=== PATIENT | male | born 1950 | race Two or more races ===

== ENCOUNTER 2017-06-26 08:07 | Emergency (ER) | payer OTHER ==
[~2017-06-26] VITALS: Ht 170.2 cm; Wt 72.6 kg
[2017-06-26] MEDS ORDERED: MIDAZOLAM DRIP 50 mg/50mL 50 ML IV SCH (08:10)
[2017-06-26] MEDS ORDERED: MIDAZOLAM DRIP 50 mg/50mL 50 ML IV ONE (08:11)
[2017-06-26] MEDS ORDERED: SUCCINYLCHOLINE CHLORIDE 20 MG/ML 10ML VIAL IV ONE (08:12)
[2017-06-26] MEDS ORDERED: ETOMIDATE (2MG/ML) 20ML VIAL IV ONE ×2 (08:15)
[2017-06-26 08:26] VITALS: BP 151/88
== END 2017-06-26 08:44 | disposition short-term general hospital (02) ==
LOC: ER 08:07 → EDBD 08:07 → EDUNIT# 08:07 → ER 08:36
DX: S09.93XA Unspecified injury of face, initial encounter (principal); R06.03 Acute respiratory distress; W01.0XXA Fall on same level from slipping, tripping and stumbling without subsequent striking against object, initial encounter; Y93.89 Activity, other specified; Y99.8 Other external cause status; Y92.89 Other specified places as the place of occurrence of the external cause
CPT/HCPCS: 31500; 99291; J2250; J0330

== ENCOUNTER 2017-12-31 09:02 | Inpatient (IN) | payer OTHER ==
[~2017-12-31] VITALS: Ht 170.2 cm; Wt 55.7 kg
[2017-12-31 12:15] LABS: Basophils # (auto) 0 uL; Basophils % (auto) 0.3 % (0.0-2.0); Eosinophils # (auto) 0 uL; Eosinophils % (auto) 0.4 % (0.0-7.0); Hematocrit 36.8 % (41.0-53.0); Lymphocytes # (auto) 2.3 uL; Mean Corpuscular Hemoglobin 32.1 pg (28.0-32.0); Mean Corpuscular Hgb Conc. 32.6 g/dL (32.0-36.0); Mean Corpuscular Volume 98.2 fL (80.0-100.0); Monocytes # (auto) 0.9 uL; Monocytes % (auto) 8.3 % (0.0-12.0); Neutrophils # (auto) 7.3 uL; Platelet Count (auto) 367 10^3/uL (140-450); Red Blood Cells 3.75 10^6/uL (4.5-5.90); Red Cell Distribution Width 15.6 % (11.8-14.3); White Blood Cell 10.6 10^3/uL (4.4-10.8)
[2017-12-31 12:34] LABS: INR 0.96 (0.9-1.15); Partial Thromboplastin Time 23.5 sec (23.78-33.04); Prothrombin Time 10.3 sec (9.27-12.13)
[2017-12-31 14:04] LABS: Anion Gap 9 (5-15); Blood Urea Nitrogen 25 mg/dL (7-18); Carbon Dioxide 26 mmol/L (21-32); Chloride 101 mmol/L (98-107); GFR African American 95 mL/min; GFR Non-African American 79 mL/min; Glucose 98 mg/dL (74-106); Potassium 4.3 mmol/L (3.5-5.1); Sodium 136 mmol/L (136-145)
[2017-12-31 14:05] LABS: Alanine Aminotransferase 27 U/L (16-61); Albumin 2.8 g/dL (3.4-5.0); Alkaline Phosphatase 138 U/L (45-117); Aspartate Aminotransferase 21 U/L (15-37); Bilirubin, Total 0.7 mg/dL (0.2-1.0); Blood Alcohol < 3.0 mg/dL (0-5); Calcium 9.9 mg/dL (8.5-10.1); Total Protein 8.9 g/dL (6.4-8.2)
[2017-12-31] MEDS ORDERED: MORPHINE SULF INJ 2 MG/ML SYRINGE 1ML IV PRN ×2 (14:45)
[2017-12-31] MEDS ORDERED: ASPirin-EC 81 mg tab PO ONE (14:45)
[2017-12-31] MEDS ORDERED: ONDANSETRON HCL 4 MG/2 ML VIAL IV PRN (14:45)
[2017-12-31] MEDS ORDERED: cefTRIAXone 1GM/10ml IVPUSH 10 ML IV ONE (14:45)
[2017-12-31] MEDS ORDERED: HYDROcodone-ACET 5/325MG TAB PO PRN (14:45)
[2017-12-31] MEDS ORDERED: DOCUSATE SOD 100 MG CAP PO PRN (14:45)
[2017-12-31] MEDS ORDERED: ACETAMINOPHEN 325 MG TAB PO PRN (14:45)
[2017-12-31] MEDS ORDERED: NITROGLYCERIN 0.4 MG SL TAB SL PRN (14:45)
[2017-12-31] MEDS: ENOXAPARIN SOD 40 MG/0.4 ML SYRINGE SC SCH (15:36)
[2017-12-31] MEDS: SODIUM CHLORIDE 0.9% 1,000 ML IV SCH (15:37)
[2017-12-31] MEDS: Ensure Enlive Strawberry 8oz Bottle PO SCH (19:30)
[2017-12-31 20:00] VITALS: BP 130/85
[2017-12-31 21:25] VITALS: BP 130/85
[2017-12-31] MEDS ORDERED: ATORVASTATIN 20 MG TAB PO SCH (22:00)
[2017-12-31] MEDS: FAMOTIDINE 20 MG TAB PO SCH (22:15)
[2018-01-01 05:33] VITALS: BP 128/84
[2018-01-01 07:39] LABS: Basophils # (auto) 0 uL; Basophils % (auto) 0.6 % (0.0-2.0); Eosinophils # (auto) 0 uL; Eosinophils % (auto) 0.6 % (0.0-7.0); Hematocrit 32.9 % (41.0-53.0); Lymphocytes # (auto) 3.3 uL; Lymphocytes % (auto) 46.3 % (10.0-50.0); Mean Corpuscular Hemoglobin 32.3 pg (28.0-32.0); Mean Corpuscular Hgb Conc. 33.3 g/dL (32.0-36.0); Mean Corpuscular Volume 96.9 fL (80.0-100.0); Monocytes # (auto) 0.8 uL; Monocytes % (auto) 11.2 % (0.0-12.0); Neutrophils % (auto) 41.3 % (37.0-80.0); Nucleated Red Blood Cells % 0.1 %; Platelet Count (auto) 315 10^3/uL (140-450); Red Blood Cells 3.39 10^6/uL (4.5-5.90); Red Cell Distribution Width 15.7 % (11.8-14.3); White Blood Cell 7.2 10^3/uL (4.4-10.8)
[2018-01-01] MEDS: Ensure Enlive Strawberry 8oz Bottle PO SCH (08:00)
[2018-01-01 08:14] LABS: Albumin 2.8 g/dL (3.4-5.0); Bilirubin, Total 0.8 mg/dL (0.2-1.0); Calcium 9.7 mg/dL (8.5-10.1); Potassium 4.2 mmol/L (3.5-5.1); Total Protein 8.5 g/dL (6.4-8.2)
[2018-01-01 09:00] VITALS: BP 126/72
[2018-01-01] MEDS: cefTRIAXone 1GM/10ml IVPUSH 10 ML IV SCH (09:37)
[2018-01-01] MEDS: FAMOTIDINE 20 MG TAB PO SCH (09:41)
[2018-01-01] MEDS: ENOXAPARIN SOD 40 MG/0.4 ML SYRINGE SC SCH (09:41)
[2018-01-01] MEDS ORDERED: MULTIPLE VITAMIN TAB PO SCH (10:00)
[2018-01-01] MEDS ORDERED: ASPirin-EC 81 mg tab PO SCH (10:00)
[2018-01-01] MEDS ORDERED: DOCUSATE ORAL LIQUID 100 MG/10 ML UD GT PRN (12:15)
[2018-01-01] MEDS ORDERED: ACETAMINOPHEN 650 mg PER 20 mL UD GT PRN (12:15)
[2018-01-01] MEDS ORDERED: HYDROcodone-ACET 5/325MG TAB GT PRN (12:15)
[2018-01-01 13:47] VITALS: BP 150/71
[2018-01-01 17:07] VITALS: BP 121/70
[2018-01-01] MEDS: SODIUM CHLORIDE 0.9% 1,000 ML IV SCH ×2 (17:32→23:07)
[2018-01-01] MEDS: Ensure Enlive Strawberry 8oz Bottle GT SCH (18:42)
[2018-01-01 20:17] VITALS: BP 105/72
[2018-01-01] MEDS: FAMOTIDINE 20 MG TAB GT SCH (21:51)
[2018-01-01] MEDS: ATORVASTATIN 20 MG TAB GT SCH (21:51)
[2018-01-02 05:32] VITALS: BP 124/72
[2018-01-02 06:38] LABS: Basophils # (auto) 0 uL; Basophils % (auto) 0.5 % (0.0-2.0); Eosinophils # (auto) 0.1 uL; Eosinophils % (auto) 1.5 % (0.0-7.0); Hematocrit 30.3 % (41.0-53.0); Lymphocytes # (auto) 4.3 uL; Lymphocytes % (auto) 51.8 % (10.0-50.0); Mean Corpuscular Hemoglobin 32.5 pg (28.0-32.0); Mean Corpuscular Volume 98.2 fL (80.0-100.0); Monocytes # (auto) 0.9 uL; Monocytes % (auto) 10.3 % (0.0-12.0); Neutrophils % (auto) 35.9 % (37.0-80.0); Nucleated Red Blood Cells % 0.1 %; Platelet Count (auto) 303 10^3/uL (140-450); Red Blood Cells 3.08 10^6/uL (4.5-5.90); Red Cell Distribution Width 15.4 % (11.8-14.3); White Blood Cell 8.3 10^3/uL (4.4-10.8)
[2018-01-02 06:52] LABS: Calcium 9.4 mg/dL (8.5-10.1); Potassium 3.7 mmol/L (3.5-5.1)
[2018-01-02 07:44] VITALS: BP 117/66
[2018-01-02] MEDS: cefTRIAXone 1GM/10ml IVPUSH 10 ML IV SCH (09:01)
[2018-01-02] MEDS ORDERED: MULTIPLE VITAMIN TAB GT SCH (10:00)
[2018-01-02] MEDS: ASPirin 81 mg TAB GT SCH (10:51)
[2018-01-02] MEDS: Ensure Enlive Strawberry 8oz Bottle GT SCH ×3 (10:51→17:52)
[2018-01-02] MEDS: FAMOTIDINE 20 MG TAB GT SCH ×2 (10:52→21:23)
[2018-01-02] MEDS: ENOXAPARIN SOD 40 MG/0.4 ML SYRINGE SC SCH (10:52)
[2018-01-02] MEDS: MULTIPLE VITAMIN ORAL 15 ML Soln GT SCH (11:28)
[2018-01-02 12:00] VITALS: BP 109/56
[2018-01-02 15:41] LABS: Alcohol, Urine < 3.0 mg/dL (0-5); Amphetamine Screen, Urine NEGATIVE (NEGATIVE); Barbiturate Scree,Urine NEGATIVE (NEGATIVE); Benzodiazephine Screen, Urine NEGATIVE (NEGATIVE); Cannabinoid Screen, Urine NEGATIVE (NEGATIVE); Cocaine Screen, Urine NEGATIVE (NEGATIVE); Opiate Scree,Urine NEGATIVE (NEGATIVE); Phencyclidine Screen, Urine NEGATIVE (NEGATIVE)
[2018-01-02 15:50] LABS: Urine Bacteria NONE SEEN /hpf (None Seen); Urine Blood Negative /uL (Negative); Urine Specific Gravity 1.016 (1.001-1.035); Urine WBC 1 /hpf (0 - 3)
[2018-01-02] MEDS: SODIUM CHLORIDE 0.9% 1,000 ML IV SCH (16:56)
[2018-01-02] MEDS ORDERED: VANCOMYCIN PER PHARMACY 0 MG IV SCH (17:00)
[2018-01-02] MEDS ORDERED: VANCOMYCIN 1GM/250ML 250 ML IV ONE (17:00)
[2018-01-02 17:12] VITALS: BP 119/66
[2018-01-02] MEDS: VANCOMYCIN 1GM/250ML 250 ML IV SCH (17:51)
[2018-01-02] MEDS: ATORVASTATIN 20 MG TAB GT SCH (21:23)
[2018-01-02 22:00] VITALS: BP 137/96
[2018-01-03 05:00] VITALS: BP 135/70
[2018-01-03 07:36] LABS: Basophils # (auto) 0 uL; Basophils % (auto) 0.4 % (0.0-2.0); Eosinophils # (auto) 0.1 uL; Eosinophils % (auto) 1.8 % (0.0-7.0); Hematocrit 28.7 % (41.0-53.0); Hemoglobin 9.4 g/dL (13.5-17.5); Lymphocytes # (auto) 2.9 uL; Lymphocytes % (auto) 44.9 % (10.0-50.0); Mean Corpuscular Hgb Conc. 32.7 g/dL (32.0-36.0); Mean Corpuscular Volume 97.9 fL (80.0-100.0); Monocytes # (auto) 0.7 uL; Monocytes % (auto) 11.3 % (0.0-12.0); Neutrophils # (auto) 2.7 uL; Neutrophils % (auto) 41.6 % (37.0-80.0); Platelet Count (auto) 269 10^3/uL (140-450); Red Blood Cells 2.93 10^6/uL (4.5-5.90); Red Cell Distribution Width 15.5 % (11.8-14.3); White Blood Cell 6.4 10^3/uL (4.4-10.8)
[2018-01-03 07:48] LABS: BUN/Creatinine Ratio 25.8; Calcium 9.2 mg/dL (8.5-10.1); Potassium 3.5 mmol/L (3.5-5.1)
[2018-01-03] MEDS: Ensure Enlive Strawberry 8oz Bottle GT SCH ×3 (10:19→18:36)
[2018-01-03] MEDS: cefTRIAXone 1GM/10ml IVPUSH 10 ML IV SCH (10:20)
[2018-01-03] MEDS: SODIUM CHLORIDE 0.9% 1,000 ML IV SCH (10:20)
[2018-01-03] MEDS: FAMOTIDINE 20 MG TAB GT SCH ×2 (10:20→22:37)
[2018-01-03] MEDS: MULTIPLE VITAMIN ORAL 15 ML Soln GT SCH (10:20)
[2018-01-03] MEDS: ASPirin 81 mg TAB GT SCH (10:20)
[2018-01-03] MEDS: ENOXAPARIN SOD 40 MG/0.4 ML SYRINGE SC SCH (10:21)
[2018-01-03] MEDS ORDERED: SPIRONOLACTONE 25 MG TAB PO ONE (11:45)
[2018-01-03] MEDS ORDERED: CARVEDILOL 3.125 MG TAB PO ONE (11:45)
[2018-01-03] MEDS: SPIRONOLACTONE 25 MG TAB PO SCH (18:36)
[2018-01-03] MEDS: VANCOMYCIN 1GM/250ML 250 ML IV SCH (18:36)
[2018-01-03 22:00] VITALS: BP 155/87
[2018-01-03] MEDS: ENALAPRIL MALEATE 2.5 MG TAB PO SCH (22:37)
[2018-01-03] MEDS: ATORVASTATIN 20 MG TAB GT SCH (22:37)
[2018-01-03] MEDS: CARVEDILOL 3.125 MG TAB PO SCH (22:38)
[2018-01-04] MEDS: SODIUM CHLORIDE 0.9% 1,000 ML IV SCH ×2 (01:57→18:37)
[2018-01-04 05:00] VITALS: BP 124/69
[2018-01-04] MEDS: SPIRONOLACTONE 25 MG TAB PO SCH ×2 (05:44→17:39)
[2018-01-04 06:47] LABS: Basophils # (auto) 0 uL; Basophils % (auto) 0.3 % (0.0-2.0); Eosinophils # (auto) 0.2 uL; Eosinophils % (auto) 2.6 % (0.0-7.0); Hematocrit 28.1 % (41.0-53.0); Hemoglobin 9.2 g/dL (13.5-17.5); Lymphocytes # (auto) 2.5 uL; Lymphocytes % (auto) 41.2 % (10.0-50.0); Mean Corpuscular Hemoglobin 32.1 pg (28.0-32.0); Mean Corpuscular Hgb Conc. 32.7 g/dL (32.0-36.0); Monocytes # (auto) 0.6 uL; Monocytes % (auto) 10.6 % (0.0-12.0); Neutrophils # (auto) 2.7 uL; Neutrophils % (auto) 45.3 % (37.0-80.0); Nucleated Red Blood Cells % 0.2 %; Platelet Count (auto) 290 10^3/uL (140-450); Red Blood Cells 2.87 10^6/uL (4.5-5.90); Red Cell Distribution Width 15.2 % (11.8-14.3)
[2018-01-04 07:46] LABS: Anion Gap 9 (5-15); BUN/Creatinine Ratio 21.1; Blood Urea Nitrogen 16 mg/dL (7-18); Calcium 9.1 mg/dL (8.5-10.1); Carbon Dioxide 25 mmol/L (21-32); Chloride 109 mmol/L (98-107); GFR African American 131 mL/min; GFR Non-African American 108 mL/min; Glucose 87 mg/dL (74-106); Potassium 3.1 mmol/L (3.5-5.1); Sodium 143 mmol/L (136-145)
[2018-01-04 09:00] VITALS: BP 121/71
[2018-01-04] MEDS: ENOXAPARIN SOD 40 MG/0.4 ML SYRINGE SC SCH (09:38)
[2018-01-04] MEDS: FAMOTIDINE 20 MG TAB GT SCH ×2 (09:38→21:55)
[2018-01-04] MEDS: ASPirin 81 mg TAB GT SCH (09:39)
[2018-01-04] MEDS: CARVEDILOL 3.125 MG TAB PO SCH ×2 (09:41→21:59)
[2018-01-04] MEDS: ENALAPRIL MALEATE 2.5 MG TAB PO SCH ×2 (09:42→22:00)
[2018-01-04] MEDS ORDERED: POTASSIUM CHL 20 Meq TABLET PO ONE (09:45)
[2018-01-04] MEDS: Ensure Enlive Strawberry 8oz Bottle GT SCH ×3 (09:49→18:00)
[2018-01-04] MEDS: MULTIPLE VITAMIN ORAL 15 ML Soln GT SCH (10:02)
[2018-01-04 13:00] VITALS: BP 125/62
[2018-01-04 17:11] VITALS: BP 149/79
[2018-01-04] MEDS: VANCOMYCIN 1GM/250ML 250 ML IV SCH (17:38)
[2018-01-04] MEDS: ATORVASTATIN 20 MG TAB GT SCH (21:55)
[2018-01-05] VITALS (7 sets, daily range): BP systolic 127–139; BP diastolic 56–88
[2018-01-05] MEDS: SPIRONOLACTONE 25 MG TAB PO SCH ×2 (05:40→18:05)
[2018-01-05 08:13] LABS: Calcium 9.1 mg/dL (8.5-10.1); Potassium 3.7 mmol/L (3.5-5.1)
[2018-01-05 08:15] LABS: BUN/Creatinine Ratio 23.2
[2018-01-05] MEDS: Ensure Enlive Strawberry 8oz Bottle GT SCH ×3 (09:21→18:10)
[2018-01-05] MEDS: FAMOTIDINE 20 MG TAB GT SCH ×2 (10:10→22:30)
[2018-01-05] MEDS: ENALAPRIL MALEATE 2.5 MG TAB PO SCH ×2 (10:10→22:32)
[2018-01-05] MEDS: CARVEDILOL 3.125 MG TAB PO SCH ×2 (10:11→22:32)
[2018-01-05] MEDS: ENOXAPARIN SOD 40 MG/0.4 ML SYRINGE SC SCH (10:11)
[2018-01-05] MEDS: ASPirin 81 mg TAB GT SCH (10:11)
[2018-01-05] MEDS: MULTIPLE VITAMIN ORAL 15 ML Soln GT SCH (10:12)
[2018-01-05] MEDS: SODIUM CHLORIDE 0.9% 1,000 ML IV SCH (11:17)
[2018-01-05] MEDS: VANCOMYCIN 1GM/250ML 250 ML IV SCH (18:04)
[2018-01-05] MEDS: ATORVASTATIN 20 MG TAB GT SCH (22:30)
== END 2018-01-05 23:15 | DRG 314 ==
LOC: ER 09:02 → TELE 09:03 → TELE-CENTR 21:26 → TELE-EAST 01-01 21:53 → EAST 01-03 15:17
PROVIDERS: ADMIT Internal Medicine; ATTEND Internal Medicine
DX: S26.90XA Unspecified injury of heart, unspecified with or without hemopericardium, initial encounter (principal); G92 Toxic encephalopathy; I50.23 Acute on chronic systolic (congestive) heart failure; E44.0 Moderate protein-calorie malnutrition; I42.9 Cardiomyopathy, unspecified; Z68.1 Body mass index [BMI] 19.9 or less, adult; D63.8 Anemia in other chronic diseases classified elsewhere; B96.89 Other specified bacterial agents as the cause of diseases classified elsewhere; I25.10 Atherosclerotic heart disease of native coronary artery without angina pectoris; N40.0 Benign prostatic hyperplasia without lower urinary tract symptoms; I70.0 Atherosclerosis of aorta; E78.5 Hyperlipidemia, unspecified; F03.90 Unspecified dementia, unspecified severity, without behavioral disturbance, psychotic disturbance, mood disturbance, and anxiety; F17.200 Nicotine dependence, unspecified, uncomplicated; I11.0 Hypertensive heart disease with heart failure; F09 Unspecified mental disorder due to known physiological condition; Z79.82 Long term (current) use of aspirin; Z79.899 Other long term (current) drug therapy; Z82.49 Family history of ischemic heart disease and other diseases of the circulatory system; Z83.3 Family history of diabetes mellitus; Z86.73 Personal history of transient ischemic attack (TIA), and cerebral infarction without residual deficits; Z98.61 Coronary angioplasty status; Z74.01 Bed confinement status; I25.2 Old myocardial infarction; Y93.89 Activity, other specified; Y92.89 Other specified places as the place of occurrence of the external cause; Y99.8 Other external cause status; S72.002G Fracture of unspecified part of neck of left femur, subsequent encounter for closed fracture with delayed healing
CPT/HCPCS: 36415; 51702; 70450; 71045; 73502; 80048; 80053; 80202; 80307; 80320; 81001; 82565; 83605; 83880; 84443; 84484; 85025; 85610; 85730; 87040; 87086; 93005; 93306; 93886; 94761; 95819; 96372; 96374; J0696; J1953